=== PATIENT | male | born 1950 | race Caucasian/White ===

== ENCOUNTER 2020-04-18 08:05 | Day surgery (SDC) | payer MEDICARE, OTHER ==
[~2020-04-18] VITALS: Ht 172.7 cm; Wt 80.0 kg
[~2020-04-18 08:05] MED LIST: FentaNYL CITRATE-PF 100 MCG/2 ML VIAL ONE; MIDAZOLAM HCL 2 MG/2 ML VIAL ONE; SODIUM CHLORIDE 0.9% 1,000 ML IV ONE; SODIUM CHLORIDE 0.9% 1,000 ML ONE
[2020-04-18] MEDS ORDERED: ATOR20TA86 PO (08:42)
[2020-04-18] MEDS ORDERED: MONT10TA21 PO (08:42)
[2020-04-18] MEDS ORDERED: INSLAN SQ (08:42)
[2020-04-18] MEDS ORDERED: CARV3 PO (08:42)
[2020-04-18] MEDS ORDERED: VALS160T2 PO (08:42)
[2020-04-18] MEDS ORDERED: DULA0.75 SQ (08:42)
[2020-04-18 08:43] LABS: GLUCOMETER DEV NAME(LOC) SDS.; GLUCOSE,POINT OF CARE 79 MG/DL (70-110)
[2020-04-18] MEDS ORDERED: MethylPREDNISolone SOD SUCC 125 MG/2 ML VIAL IVP ONE (10:00)
[2020-04-18] MEDS ORDERED: LIDOCAINE 4% 50 ML SOLUTION ONE (17:01)
[2020-04-18] MEDS ORDERED: ALBUTEROL SULFATE 2.5 MG/0.5 ML NEB SOLUTION NEB ONE (17:01)
[2020-04-18] MEDS ORDERED: BENZOCAINE 20% 50 MCG/SPRAY 57 GM ONE (17:01)
[2020-04-18] MEDS ORDERED: LIDOCAINE 2% 30 ML JELLY ONE (17:01)
== END 2020-04-18 11:15 | disposition home or self-care (01) ==
LOC: SURGERY 08:05
PROVIDERS: ATTEND Internal Medicine Critical Care Medicine
DX: J38.4 Edema of larynx (principal); B37.0 Candidal stomatitis
CPT/HCPCS: 31623; 31624; 71045; 82962; 87015; 87070; 87101; 87205; 87206; 87220; 88108; 88312; 93005; J2250; J2930; J3010; J7030